=== PATIENT | female | born 1980 ===

== ENCOUNTER 2020-03-24 10:15 | Emergency (ER) | payer BC, OTHER ==
[2020-03-24] MEDS ORDERED: Sodium Chloride 0.9% 1,000 ML IV STA (10:32)
[2020-03-24] MEDS ORDERED: Sodium Chloride 0.9% 10 ML Syringe FLUSH PRN (10:32)
[2020-03-24] MEDS ORDERED: Ondansetron 4 MG/2 ML SDV IVPUSH ONE (10:32)
[2020-03-24] MEDS ORDERED: HYDROmorphone 1 MG/ML Syringe IVPUSH ONE (10:33)
[2020-03-24] MEDS ORDERED: Iopamidol 612 MG/ML 100 ML Bottle IVPUSH ONE (11:29)
[2020-03-24] MEDS ORDERED: Diatrizoate Meglumine/Diatrizoate Sodium 37% 120 ML Bottle PO ONE (11:29)
[2020-03-24] MEDS ORDERED: Sodium Chloride 0.9% 10 ML Syringe FLUSH ONE (11:29)
--- NOTE | 2020-03-24 12:20 | EDM.PDOC ---
ED HPI GENERAL MEDICAL PROBLEM - General Chief Complaint: Abdominal Pain Stated Complaint: ABDOMINAL PAIN AND VOMITING BLOOD Time Seen by Provider: 03/24/20 10:27 Source of Information: Reports: Patient History Limitations: Reports: No Limitations - History of Present Illness INITIAL COMMENTS - FREE TEXT/NARRATIVE: The patient presents with right upper abdominal pain, nausea and vomiting. She says this has been an issue ever since she had her gallbladder removed in [facility] 1 year ago. She said this flared up 5 days ago. She had vomited some blood. She lives in [place] and she was seen in their hospital last night. She has no diarrhea or dysuria. She has no fever, chills, cough, chest pain or shortness of breath. Onset: Gradual Duration: Week(s): Location: Reports: Abdomen Quality: Reports: Sharp Severity: Severe Improves with: Reports: None Worsens with: Reports: None Associated Symptoms: Reports: Nausea/Vomiting. Denies: Chest Pain, Cough, Fever /Chills, Headaches, Shortness of Breath Right Abdomen Pain Score (Numeric/FACES): 5 - Related Data Allergies Allergy/AdvReac Type Severity Reaction Status Date / Time tramadol Allergy Tachycardia Verified 03/24/20 11:13 trazodone Allergy Arrhythmias Verified 03/24/20 11:13 Home Meds: Home Meds ALPRAZolam [Xanax] 0.5 mg PO BID PRN 10/12/18 [History] Escitalopram [Lexapro] 5 mg PO BEDTIME 10/12/18 [History] Omeprazole Magnesium [Prilosec Otc] 20 mg PO BEDTIME 10/12/18 [History] Zolpidem [Ambien] 5 mg PO BEDTIME PRN 10/12/18 [History] lamoTRIgine [Lamictal] 100 mg PO BEDTIME 10/12/18 [History] Ondansetron [Zofran] 4 mg PO ASDIRECTED PRN 01/11/19 [History] Prazosin HCl [Prazosin] 2 mg PO BEDTIME 01/11/19 [History] Hydrocodone/Acetaminophen [Hydrocodone-Acetamin 5-325 mg] 1 - 2 each PO Q6HR PRN #20 tablet 03/24/20 [Rx] Ondansetron [Zofran ODT] 4 mg PO Q6H PRN #20 tab.dis 03/24/20 [Rx] Past Medical History HEENT History: Reports: Impaired Vision, Other (See Below) Other HEENT History: wears glasses, contacts Cardiovascular History: Reports: Hypertension Respiratory History: Reports: Asthma, Bronchitis, Recurrent, Pneumonia, Recurrent Other Respiratory History: hx of asthma as a child but outgrew it Gastrointestinal History: Reports: GERD Genitourinary History: Reports: UTI, Recurrent HE[employer] SCI[employer] SPECIALIST History: Reports: Musculoskeletal History: Reports: Back Pain, Chronic, Fracture, Neck Pain, Chronic Other Musculoskeletal History: hx of fx right wrist Neurological History: Reports: None Psychiatric History: Reports: Anxiety, Bipolar, Depression, PTSD Endocrine/Metabolic History: Reports: Obesity/BMI 30+, Other (See Below) Other Endocrine/Metabolic History: borderline diabetic. Hematologic History: Reports: Anemia Immunologic History: Reports: None Oncologic (Cancer) History: Reports: None Dermatologic History: Reports: Other (See Below) Other Dermatologic History: nickel allergy. - Infectious Disease History Infectious Disease History: Reports: Chicken Pox, Influenza, Pertussis ( Whooping Cough) - Past Surgical History GI Surgical History: Reports: Cholecystectomy, EGD Female Surgical History: Reports: Hysterectomy Social & Family History - Family History Family Medical History: Noncontributory - Tobacco Use Smoking Status *Q: Current Every Day Smoker Years of Tobacco use: 20 Packs/Tins Daily: 0.5 Second Hand Smoke Exposure: Yes - Caffeine Use Caffeine Use: Reports: Soda - Recreational Drug Use Recreational Drug Use: No ED ROS GENERAL - Review of Systems Review Of Systems: See Below Constitutional: Reports: No Symptoms HEENT: Reports: No Symptoms Respiratory: Reports: No Symptoms Cardiovascular: Reports: No Symptoms Endocrine: Reports: No Symptoms GI/Abdominal: Reports: Abdominal Pain, Nausea, Vomiting. Denies: Diarrhea : Reports: No Symptoms Musculoskeletal: Reports: No Symptoms ED EXAM, GI/ABD - Physical Exam Exam: See Below Exam Limited By: No Limitations General Appearance: Alert, No Apparent Distress Ears: Normal External Exam Nose: Normal Inspection Head: Atraumatic, Normocephalic Neck: Normal Inspection Respiratory/Chest: No Respiratory Distress, Lungs Clear, Normal Breath Sounds Cardiovascular: Regular Rate, Rhythm, No Edema, No Murmur GI/Abdominal Exam: Soft, No Organomegaly, No Mass, Tender (Moderate tenderness to the RUQ and right lower rib cage) Back Exam: Normal Inspection Extremities: Normal Inspection Course - Vital Signs Last Recorded V/S: Last Vital Signs Temp 97.3 F 03/24/20 10:20 Pulse 120 H 03/24/20 10:20 Resp 20 03/24/20 10:20 BP 174/103 H 03/24/20 10:20 Pulse Ox 100 03/24/20 10:20 - Orders/Labs/Meds Orders: Active Orders 24 hr Category Date Time Status Peripheral IV Care [RC] . DIRECTED Care 03/24/20 10:32 Active UA W/MICROSCOPIC [URIN] Stat Lab 03/24/20 10:32 Stop Req Sodium Chloride 0.9% [Saline Flush] Med 03/24/20 10:32 Active 10 ml FLUSH ASDIRECTED PRN ED Antiemetic Medication Reflex [OM.PC] Stat Oth 03/24/20 10:32 Ordered Peripheral IV Insertion Adult [OM.PC] Stat Oth 03/24/20 10:32 Ordered Medication Orders Sodium Chloride (Saline Flush) 10 ml FLUSH ASDIRECTED PRN PRN Reason: Keep Vein Open Last Admin: 03/24/20 10:55 Dose: 10 ml Labs: Laboratory Tests 03/24/20 03/24/20 03/24/20 Range/Units 10:55 10:55 10:55 WBC 8.41 (3.98-10.04) K/mm3 RBC 4.19 (3.98-5.22) M/mm3 Hgb 11.4 (11.2-15.7) gm/dl Hct 36.0 (34.1-44.9) % MCV 85.9 (79.4-94.8) fl MCH 27.2 (25.6-32.2) pg MCHC 31.7 L (32.2-35.5) g/dl RDW Std Deviation 50.9 H (36.4-46.3) fL Plt Count 332 (182-369) K/mm3 MPV 10.3 (9.4-12.3) fl Neut % (Auto) 61.7 (34.0-71.1) % Lymph % (Auto) 22.9 (19.3-51.7) % [place] % (Auto) 11.5 (4.7-12.5) % Eos % (Auto) 3.4 (0.7-5.8) Baso % (Auto) 0.1 (0.1-1.2) % Neut # (Auto) 5.18 (1.56-6.13) K/mm3 Lymph # (Auto) 1.93 (1.18-3.74) K/mm3 [place] # (Auto) 0.97 H (0.24-0.36) K/mm3 Eos # (Auto) 0.29 (0.04-0.36) K/mm3 Baso # (Auto) 0.01 (0.01-0.08) K/mm3 Manual Slide Review Normal smear Sodium 141 (136-145) mEq/L Potassium 4.3 (3.5-5.1) mEq/L Chloride 106 (98-107) mEq/L Carbon Dioxide 26 (21-32) mEq/L Anion Gap 13.3 (5-15) BUN 14 (7-18) mg/dL Creatinine 0.8 (0.55-1.02) mg/dL Est Cr Clr Drug Dosing 96.71 mL/min Estimated GFR (MDRD) > 60 (>60) mL/min BUN/Creatinine Ratio 17.5 (14-18) Glucose 100 (74-106) mg/dL Calcium 9.1 (8.5-10.1) mg/dL Total Bilirubin 0.4 (0.2-1.0) mg/dL AST 20 (15-37) U/L ALT 35 (14-59) U/L Alkaline Phosphatase 94 (46-116) U/L Total Protein 7.7 (6.4-8.2) g/dl Albumin 3.6 (3.4-5.0) g/dl Globulin 4.1 gm/dL Albumin/Globulin Ratio 0.9 L (1-2) Lipase 113 (73-393) U/L HCG, Qual Negative (NEGATIVE) Meds: Medications Generic Name Dose Route Start Last Admin Trade Name Freq PRN Reason Stop Dose Admin Sodium Chloride 10 ml 03/24/20 10:32 03/24/20 10:55 Saline Flush FLUSH 10 ml ASDIRECTED PRN Administration Keep Vein Open Discontinued Medications Generic Name Dose Route Start Last Admin Trade Name Freq PRN Reason Stop Dose Admin Diatrizoate Meglum/Diatrizoate Sod 90 ml 03/24/20 11:29 03/24/20 12:05 Gastrografin 37% PO 03/24/20 11:30 90 ml ONETIME ONE Administration Hydromorphone HCl 1 mg 03/24/20 10:33 03/24/20 10:58 Dilaudid IVPUSH 03/24/20 10:34 1 mg ONETIME ONE Administration Sodium Chloride 1,000 mls @ 1,000 mls/hr 03/24/20 10:32 03/24/20 11:00 Normal Saline IV 03/24/20 11:31 1,000 mls/hr .BOLUS STA Administration Iopamidol 100 ml 03/24/20 11:29 03/24/20 12:05 Isovue-300 (61%) IVPUSH 03/24/20 11:30 100 ml ONETIME ONE Administration Ondansetron HCl 4 mg 03/24/20 10:32 03/24/20 10:56 Zofran IVPUSH 03/24/20 10:33 4 mg ONETIME ONE Administration Sodium Chloride 10 ml 03/24/20 11:29 03/24/20 12:05 Saline Flush FLUSH 03/24/20 11:30 10 ml ONETIME ONE Administration - Re-Assessments/Exams Free Text/Narrative Re-Assessment/Exam: 03/24/20 12:20 I ordered an IV NS 1L bolus, zofran 4mg IV, dilaudid 1mg IV, labs, UA and a CT of her abdomen and pelvis. Her CBC and CMP look good. Her HCG is negative. 03/24/20 12:[address] shows small hiatal hernia with gastroesophageal reflux of contrast. Mild increased stool is noted throughout the colon. No additional abnormality is appreciated. She feels a little better. I will get her on something for pain, some zofran, and prilosec. Departure - Departure Time of Disposition: 12:40 Disposition: Home, Self-Care 01 Condition: Good Clinical Impression: Hiatal hernia Abdominal pain Qualifiers: Abdominal location: right upper quadrant Qualified Code(s): R10.11 - Right upper quadrant pain Vomiting Qualifiers: Vomiting type: unspecified Vomiting Intractability: non-intractable Nausea presence: with nausea Qualified Code(s): R11.2 - Nausea with vomiting, unspecified - Discharge Information *PRESCRIPTION DRUG MONITORING PROGRAM REVIEWED*: No *COPY OF PRESCRIPTION DRUG MONITORING REPORT IN PATIENT ALBIN: No Prescriptions: Hydrocodone/Acetaminophen [Hydrocodone-Acetamin 5-325 mg] 1 - 2 each PO Q6HR PRN #20 tablet PRN Reason: Pain Ondansetron [Zofran ODT] 4 mg PO Q6H PRN #20 tab.dis PRN Reason: Nausea\vomiting Referrals: Jody Hernandez NP [Primary Care Provider] - Ayala Patel MD [Physician] - 1 Week Forms: ED Department Discharge Additional Instructions: Drink plenty of fluids. Take prilosec daily. Take zofran every 6 hours as needed for nausea and vomiting. Take motrin or tylenol as needed for pain. If that does not work, try the hydrocodone. Follow up with our general surgeon control panel operator Dr Patel. Please return if you are worse. Sepsis Event Note - Evaluation Sepsis Screening Result: No Definite Risk - Focused Exam Vital Signs: Vital Signs Temp Pulse Resp BP Pulse Ox 03/24/20 10:20 97.3 F 120 H 20 174/103 H 100 Date Exam was Performed: 03/24/20 Time Exam was Performed: 12:36 - My Orders Last 24 Hours: My Active Orders 03/24/20 10:32 Peripheral IV Care [RC] . DIRECTED UA W/MICROSCOPIC [URIN] Stat Sodium Chloride 0.9% [Saline Flush] 10 ml FLUSH ASDIRECTED PRN ED Antiemetic Medication Reflex [OM.PC] Stat Peripheral IV Insertion Adult [OM.PC] Stat - Assessment/Plan Last 24 Hours: My Active Orders 03/24/20 10:32 Peripheral IV Care [RC] . DIRECTED UA W/MICROSCOPIC [URIN] Stat Sodium Chloride 0.9% [Saline Flush] 10 ml FLUSH ASDIRECTED PRN ED Antiemetic Medication Reflex [OM.PC] Stat Peripheral IV Insertion Adult [OM.PC] Stat
--- NOTE | 2020-03-24 12:35 | CT ---
CT abdomen and pelvis Technique: Multiple axial sections were obtained from slightly below the top the liver inferiorly through the pubic symphysis. Intravenous and oral contrast was utilized. Delayed images were obtained through the pelvis. Findings: Visualized lung bases show nothing acute. Liver contains no focal abnormality. Spleen appears within normal limits. Adrenal glands show no nodule. Pancreas is within normal limits. Surgical clips are seen from prior cholecystectomy. Adrenal glands show no nodule. Kidneys show symmetric contrast enhancement without hydronephrosis or mass. Small hiatal hernia seen with gastroesophageal reflux of contrast. Aorta shows no aneurysm. No retroperitoneal adenopathy or mesenteric abnormalities are seen. No pelvic mass or adenopathy is seen. Cyst is noted within the left ovary measuring 2.3 cm in size believed to be physiologic. Mild increased stool is noted throughout the colon. Delayed images were obtained which shows contrast within the bladder. Bone window settings were reviewed which shows no acute osseous finding. Impression: 1. Small hiatal hernia with gastroesophageal reflux of contrast. 2. Mild increased stool is noted throughout the colon. 3. No additional abnormality is appreciated. Diagnostic code #2 This report was dictated in MDT
== END 2020-03-24 13:10 | disposition home or self-care (01) ==
LOC: JD.ED 10:15
DX: K44.9 Diaphragmatic hernia without obstruction or gangrene (principal); I10 Essential (primary) hypertension; J45.909 Unspecified asthma, uncomplicated; K21.9 Gastro-esophageal reflux disease without esophagitis; F31.9 Bipolar disorder, unspecified; F41.9 Anxiety disorder, unspecified; E66.9 Obesity, unspecified; Z90.89 Acquired absence of other organs; F17.210 Nicotine dependence, cigarettes, uncomplicated; Z68.29 Body mass index [BMI] 29.0-29.9, adult; Z90.710 Acquired absence of both cervix and uterus; Z88.8 Allergy status to other drugs, medicaments and biological substances; Z88.5 Allergy status to narcotic agent; Z79.899 Other long term (current) drug therapy
CPT/HCPCS: 36415; 74177; 80053; 83690; 84703; 85025; 96360; 96361; 99284; J1170; J2405; J7030; Q9963; Q9967